=== PATIENT | male | born 1960 | race Caucasian/White ===

== ENCOUNTER 2017-05-10 06:44 | Day surgery (SDC) | payer BC ==
[~2017-05-10] VITALS: Ht 177.8 cm; Wt 91.4 kg
[~2017-05-10 06:44] MED LIST: AMLO5TAB2 PO; LISI-538 PO; LISI20TA3 PO
[2017-05-10] MEDS ORDERED: TOBRAMYCIN INJ 80 MG/2 ML VIAL (J3260) As Ordered ONE (06:57)
[2017-05-10] MEDS ORDERED: BETAMETHASONE SOLUSPAN 6MG/ML INJ 5ML (J0702) As Ordered ONE (06:57)
[2017-05-10] MEDS ORDERED: TOBRADEX OPHTH OINT 3.5 GM As Ordered ONE (06:58)
[2017-05-10] MEDS ORDERED: LIDOCAINE 2% W/EPIN INJ 20ML **PRES FREE As Ordered ONE (06:58)
[2017-05-10] MEDS ORDERED: POVIDONE-IODINE 5% OPHTH PREP SOL 30ML As Ordered ONE (06:59)
[2017-05-10] MEDS ORDERED: OFLOXACIN 0.3 % (OCUFLOX) OPTH SOL 5ML OD ONE (07:00)
[2017-05-10] MEDS ORDERED: LIDOCAINE 3.5 % 1ML OPHTH TOPICAL GEL OU ONE (07:00)
[2017-05-10] MEDS ORDERED: SLF 3 ML SYR IV PRN (07:00)
[2017-05-10] MEDS ORDERED: mitoMYcin 0.2 MG/VIAL KIT FOR OPHTHALMIC USE (J7315 PER 0.2MG) As Ordered ONE (09:26)
[2017-05-10] MEDS ORDERED: MIDAZOLAM INJ 2 MG/2 ML VIAL (J2250) As Ordered ONE (09:39)
[2017-05-10] MEDS ORDERED: fentaNYL 100 MCG/2 ML INJECTION (J3010) As Ordered ONE (09:39)
--- NOTE | 2017-05-10 10:26 | RO ---
DATE OF PROCEDURE: 05/10/2017 PREPROCEDURE DIAGNOSIS: Multiple pterygium right eye. POSTPROCEDURE DIAGNOSIS: Multiple pterygium right eye. PROCEDURE: Removal of multiple pterygium right eye with mitomycin C application along with placement of the amniotic membrane right eye. SURGEON: Dr. Kell Yost LABORER OPERATOR: None. ANESTHESIA: COMPLICATIONS: None. DESCRIPTION OF PROCEDURE: The patient was brought to the operating room and laid in supine position. The eye was prepped and draped in a sterile fashion for ophthalmic surgery and 2% lidocaine with 1:100,000 epinephrine was then given subconjuctivally, nasally and temporally underneath the pterygium. Attention was first devoted towards the nasal pterygium. With the help of the Rae scissors and smooth forceps, the pterygium was excised from the base towards the center and the corneal part was excised with the help of the Pedro scissors. The rest of the pterygium was removed with the help of the [place] blade. After which, hemostasis was obtained with the cautery. The bed was dried and mitomycin 2 mg/mL was then placed on the scleral bed for 2 minutes followed by copious irrigation with balanced salt solution. Following this, Tisseel glue was applied to the base and amniotic membrane cut to the size was placed over the site of the excised pterygium and conjunctiva. The conjunctiva was approximated as needed. The amniotic membrane was noted to be well placed and well glued. Exactly the same procedure was repeated for the pterygium that was temporal. At the end of the case, TobraDex ointment was applied, the eye was patched, Gates shield applied and patient returned to the recovery room in stable condition.
[2017-05-10 10:49] VITALS: BP 157/81
[2017-05-10] MEDS ORDERED: SLF 3 ML SYR IV SCH (14:00)
== END 2017-05-10 10:51 | disposition home or self-care (01) ==
LOC: M SDC 06:44
PROVIDERS: ATTEND Ophthalmology
DX: H11.011 Amyloid pterygium of right eye (principal); I49.9 Cardiac arrhythmia, unspecified; I10 Essential (primary) hypertension; E78.00 Pure hypercholesterolemia, unspecified; R73.03 Prediabetes; K21.9 Gastro-esophageal reflux disease without esophagitis; R06.83 Snoring; Z79.899 Other long term (current) drug therapy
CPT/HCPCS: 65426; 88304; C1762; J2250; J3010; J7315

== ENCOUNTER → 2025-03-18 | Outpatient (REF) | payer OTHER ==
[~2025-03-18] MED LIST changes: +AMLO1TAB24 PO; -AMLO5TAB2 PO; -LISI-538 PO; -LISI20TA3 PO; +LISI20TA33 PO; +LISI20TA37 PO
== END ==
LOC: M LAB REF 17:42
PROVIDERS: ATTEND Otolaryngology
DX: J35.01 Chronic tonsillitis (principal)